=== PATIENT | female | born 1975 | race Caucasian/White ===

== ENCOUNTER 2021-06-30 08:34 | Emergency (ER) | payer MEDICAID, OTHER ==
[~2021-06-30] VITALS: Ht 152.4 cm; Wt 73.0 kg
[~2021-06-30 08:34] MED LIST: D-ME118S13 PO; P20 PO
[2021-06-30 08:44] VITALS: BP 131/90
[2021-06-30] MEDS ORDERED: HYDR-4001 MT (09:25)
== END 2021-06-30 09:34 | disposition home or self-care (01) ==
LOC: ER 08:34
DX: M54.31 Sciatica, right side (principal)
CPT/HCPCS: 99283